=== PATIENT | female | born 1965 | race Two or more races ===

== ENCOUNTER 2022-04-21 10:41 | Emergency (ER) | payer OTHER ==
[~2022-04-21] VITALS: Ht 157.5 cm; Wt 99.3 kg
[2022-04-21] MEDS ORDERED: COZAAR100 MG (11:35)
== END 2022-04-21 14:52 | disposition home or self-care (01) ==
LOC: ER 10:41
DX: S99.822A Other specified injuries of left foot, initial encounter (principal); W18.39XA Other fall on same level, initial encounter; Y93.89 Activity, other specified; Y92.9 Unspecified place or not applicable; Z88.0 Allergy status to penicillin; I10 Essential (primary) hypertension